=== PATIENT | female | born 1960 | race African-American/Black ===

== ENCOUNTER 2017-09-13 09:17 | Emergency (ER) | payer OTHER | END 2017-09-13 10:23 | disposition home or self-care (01) | LOC: ERS 09:17 | DX: J11.1 Influenza due to unidentified influenza virus with other respiratory manifestations (principal); E11.9 Type 2 diabetes mellitus without complications; I10 Essential (primary) hypertension; B20 Human immunodeficiency virus [HIV] disease; J45.909 Unspecified asthma, uncomplicated; F17.210 Nicotine dependence, cigarettes, uncomplicated; Z79.899 Other long term (current) drug therapy | CPT/HCPCS: 87081; 87430; 99283 ==

== ENCOUNTER 2018-07-22 13:05 | Outpatient (CLI) | payer MEDICAID ==
--- NOTE | 2018-07-22 16:24 | RAD ---
TWO VIEWS OF THE RIGHT HIP: Date: 07-22-18 Comparison: None. History: Right hip pain. FINDINGS: There is severe degenerative change involving the right hip with joint space narrowing and subchondra l sclerosis of the acetabular roof. There is osteophyte formation involving the femoral head and the acetabulum laterally. In addition, the femoral head demonstrates abnormal modeled sclerosis and there is subchondral linear lucency involving the femoral head. Findings are concerning for avascular necr osis. IMPRESSION: Avascular necrosis of the right femoral head with associated prominent degenerative change. Code T POS: [facility]
== END 2018-07-22 13:06 | disposition home or self-care (01) ==
LOC: RAD 13:05
PROVIDERS: ATTEND Family Medicine
DX: M25.551 Pain in right hip (principal); M16.11 Unilateral primary osteoarthritis, right hip

== ENCOUNTER 2018-08-04 09:09 | Emergency (ER) | payer OTHER ==
[2018-08-04] MEDS ORDERED: Adacel (T-DAP) 0.5 ML VIAL ONE (10:39)
[2018-08-04] MEDS ORDERED: Bacitracin Zinc 1 Packet ONE (10:52)
== END 2018-08-04 11:07 | disposition home or self-care (01) ==
LOC: ERS 09:09
DX: S61.012A Laceration without foreign body of left thumb without damage to nail, initial encounter (principal); I10 Essential (primary) hypertension; B20 Human immunodeficiency virus [HIV] disease; J45.909 Unspecified asthma, uncomplicated; F31.9 Bipolar disorder, unspecified; Z87.891 Personal history of nicotine dependence; W26.8XXA Contact with other sharp object(s), not elsewhere classified, initial encounter
CPT/HCPCS: 90471; 90715

== ENCOUNTER 2018-12-07 11:00 | Outpatient (CLI) | payer OTHER ==
--- NOTE | 2018-12-07 11:51 | RAD ---
THREE VIEWS LUMBOSACRAL SPINE: Comparison: None. History: Low back pain. FINDINGS: Three views of the lumbosacral spine shows normal height and alignment of the vertebral bodies and in tervertebral disc without fracture or subluxation. A small osteophyte is seen projecting over the rig ht aspect of the superior aspect of the L3 vertebral body. IMPRESSION: Mild degenerative changes in the mid lumbar spine without acute osseous abnormality. POS: [facility]
== END 2018-12-07 11:01 | disposition home or self-care (01) ==
LOC: RAD 11:00
PROVIDERS: ATTEND Psychiatry & Neurology Neurology
DX: M54.5 Low back pain (principal); M47.816 Spondylosis without myelopathy or radiculopathy, lumbar region
CPT/HCPCS: 72100

== ENCOUNTER 2019-03-03 11:09 | Outpatient (CLI) | payer OTHER ==
--- NOTE | 2019-03-03 11:39 | RAD ---
Chest 2 views HISTORY: Positive TB skin test. COMPARISON: 12/04/2012. FINDINGS: Cardiac silhouette and pulmonary vasculature are unremarkable. Mediastinum is midline with aortic calcification. No confluent airspace consolidation, pleural fluid, or pneumothorax. IMPRESSION: No active cardiopulmonary abnormalities are demonstrated.
== END 2019-03-03 11:10 | disposition home or self-care (01) ==
LOC: BICRAD 11:09
PROVIDERS: ATTEND Internal Medicine Infectious Disease
DX: R76.12 Nonspecific reaction to cell mediated immunity measurement of gamma interferon antigen response without active tuberculosis (principal)
CPT/HCPCS: 71046

== ENCOUNTER 2019-04-27 14:27 | Emergency (ER) | payer OTHER | END 2019-04-27 15:00 | disposition home or self-care (01) | LOC: ERS 14:27 | DX: J34.89 Other specified disorders of nose and nasal sinuses (principal); B20 Human immunodeficiency virus [HIV] disease; F31.9 Bipolar disorder, unspecified; F17.210 Nicotine dependence, cigarettes, uncomplicated; Z79.899 Other long term (current) drug therapy | CPT/HCPCS: 99281 ==

== ENCOUNTER 2019-09-03 21:57 | Emergency (ER) | payer OTHER ==
[2019-09-03] MEDS ORDERED: Ibuprofen 200 MG TAB ONE (23:56)
== END 2019-09-04 00:30 | disposition home or self-care (01) ==
LOC: ERS 21:57
DX: J02.9 Acute pharyngitis, unspecified (principal)
CPT/HCPCS: 87081; 87430; 99283

== ENCOUNTER 2020-07-31 13:56 | Emergency (ER) | payer OTHER ==
[2020-08-01 12:59] LABS: SARS-CoV-2 MS2 Positive; SARS-CoV-2 N Gene Negative; SARS-CoV-2 S Gene Negative; SARS-CoV-2 by NAA Not Detected (NotDetected); SARS-CoV-2 orf1ab Negative
== END 2020-07-31 14:41 | disposition home or self-care (01) ==
LOC: ERS 13:56
DX: B34.9 Viral infection, unspecified (principal); Z20.828 Contact with and (suspected) exposure to other viral communicable diseases; Z21 Asymptomatic human immunodeficiency virus [HIV] infection status
CPT/HCPCS: 87635; 87804; 99283; U0003

== ENCOUNTER 2021-01-01 13:05 | Emergency (ER) | payer OTHER ==
[2021-01-01 13:40] LABS: Hemoglobin 12.9 g/dL (12.0-16.0); Mean Corpuscular HGB CONC 32.4 g/dL (32.0-36.0); Mean Corpuscular Hemoglobin 28.6 pg (27.0-31.0); Mean Corpuscular Volume 88.2 fL (78.0-98.0); Mean Platelet Volume 7.4 fL (7.4-10.4); Platelet Count 331 thou/uL (130-400); Red Blood Cell (RBC) Count 4.51 mill/uL (4.20-5.40); White Blood Cell (WBC) Count 8.8 thou/uL (4.8-10.8)
[2021-01-01 14:03] LABS: Eosinophils 1 % (0-10); Lymphocytes 51 % (21-51); MDiff Complete? YES; Monocytes 7 % (0-10); Neutrophil 40 % (42-75); Platelet Morphology Comment Appears Adequate; RBC Morphology Normal
[2021-01-01 15:16] LABS: Albumin 4.1 g/dL (3.5-5.0)
[2021-01-01 15:17] LABS: Chloride 108 mmol/L (98-107); Potassium 4.2 mmol/L (3.5-5.1); Sodium 141 mmol/L (136-145)
[2021-01-01 15:18] LABS: Glucose 80 mg/dL (70-105)
[2021-01-01 15:19] LABS: Carbon Dioxide 26 mmol/L (22-29); Globulin 3.3 g/dL (2.4-3.5); Protein, Total 7.4 g/dL (6.0-8.3)
[2021-01-01 15:20] LABS: Anion Gap 11 mmol/L (10-20); Bilirubin, Total 0.3 mg/dL (0.2-1.2)
[2021-01-01 15:21] LABS: Alkaline Phosphatase 115 U/L (40-110)
[2021-01-01 15:22] LABS: BUN (Urea Nitrogen) 12 mg/dL (9.8-20.1); Calc. Creatinine Clearance 0 mL/min (70-130)
[2021-01-01 15:23] LABS: AST (SGOT) 15 U/L (5-34)
[2021-01-01 15:24] LABS: ALT (SGPT) 9 U/L (8-55); Lipase 13 U/L (8-78)
== END 2021-01-01 15:51 | disposition home or self-care (01) ==
LOC: ERS 13:05
DX: M54.16 Radiculopathy, lumbar region (principal); Z21 Asymptomatic human immunodeficiency virus [HIV] infection status; Z79.899 Other long term (current) drug therapy
CPT/HCPCS: 36415; 70450; 71045; 72100; 80053; 83690; 84484; 85025; 93005

== ENCOUNTER 2021-11-12 11:24 | Emergency (ER) | payer OTHER | END 2021-11-12 11:53 | disposition home or self-care (01) | LOC: ERS 11:24 | DX: K02.9 Dental caries, unspecified (principal); Z21 Asymptomatic human immunodeficiency virus [HIV] infection status; Z87.891 Personal history of nicotine dependence | CPT/HCPCS: 99282 ==